=== PATIENT | male | born 1985 | race Caucasian/White ===

== ENCOUNTER 2024-11-08 09:47 | Emergency (ER) | payer BC, OTHER ==
[2024-11-08] MEDS ORDERED: Sodium Chloride 0.9% 10 ML Syringe FLUSH PRN (10:02)
[2024-11-08 10:25] LABS: BASOPHILS PERCENT AUTO 0.6 % (0.0-1.0); EOSINOPHILS PERCENT AUTO 0.4 % (0.0-6.0); HEMOGLOBIN 14.9 gm/dl (14.0-18.0); IMMATURE GRAN ABSOLUTE AUTO 0.01 K/mm3 (0.00-0.05); IMMATURE GRAN PERCENT AUTO 0.2 % (0.0-0.4); LYMPHOCYTES ABSOLUTE AUTO 0.5 K/mm3 (1.0-4.8); LYMPHOCYTES PERCENT AUTO 10.6 % (24.0-44.0); MEAN CORPUSCULAR HEMOGLOBIN 31.2 pg (28.0-32.0); MEAN CORPUSCULAR HGB CONC 33.1 g/dl (32.0-36.0); MEAN CORPUSCULAR VOLUME 94.1 fl (83.0-99.0); MEAN PLATELET VOLUME 9.7 fl (9.4-12.4); MONOCYTES ABSOLUTE AUTO 0.9 K/mm3 (0.0-0.8); MONOCYTES PERCENT AUTO 17.8 % (0.0-8.0); NEUTROPHILS ABSOLUTE AUTO 3.5 K/mm3 (1.8-7.7); NEUTROPHILS PERCENT AUTO 70.4 % (41.0-71.0); PLATELET COUNT,PLT 266 K/mm3 (150-400); RED BLOOD CELL COUNT 4.78 M/mm3 (4.52-5.90); WHITE BLOOD CELL COUNT,WBC 4.99 K/mm3 (3.9-11.3)
[2024-11-08] MEDS: Morphine 4 MG/ML Syringe IVPUSH PRN (10:36)
[2024-11-08 10:56] LABS: ALANINE AMINOTRANSFERASE,ALT 206 U/L (16-63); ALBUMIN 3.8 g/dl (3.4-5.0); ALKALINE PHOSPHATASE 73 U/L (46-116); ASPARTATE AMNIOTRANSFERASE,AST 97 U/L (15-37); BILIRUBIN TOTAL 0.3 mg/dL (0.2-1.0); BLOOD UREA NITROGEN,BUN 14 mg/dL (7-18); BUN/CREATININE RATIO 12.7 (14-18); C-REACTIVE PROTEIN 1.63 mg/dL (<0.30); CALCIUM 8.9 mg/dL (8.5-10.1); CARBON DIOXIDE,CO2 22 mEq/L (21-32); CHLORIDE,CL 104 mEq/L (98-107); CREATININE 1.1 mg/dL (0.7-1.3); EST CRCL DRUG DOSING (CG) 91.05 mL/min; ESTIMATED GFR 88 mL/min (>60); GLUCOSE RANDOM 100 mg/dL (70-99); PROTEIN TOTAL,TP 7.5 g/dl (6.4-8.2); SODIUM,NA 137 mEq/L (136-145)
[2024-11-08 10:57] LABS: TROPONIN I HIGH SENSITIVITY < 4 pg/mL (<=76)
[2024-11-08] MEDS: Gabapentin 300 MG Cap PO ONE (12:20)
[2024-11-08 12:26] LABS: APPEARANCE,URINE CLEAR (Clear); BILIRUBIN,URINE NEGATIVE (Negative); COLOR,URINE YELLOW (Yellow); GLUCOSE,URINE NEGATIVE (Negative); KETONES,URINE NEGATIVE (Negative); LEUKOCYTE ESTERASE,URINE NEGATIVE (Negative); NITRITE,URINE NEGATIVE (Negative); OCCULT BLOOD,URINE 2+ (Negative); PH,URINE 5.5 (5.0-8.0); PROTEIN,URINE 2+ (Negative); UROBILINOGEN,URINE 0.2 (0.2-1.0)
[2024-11-08 12:57] LABS: EPITHELIAL CELLS,URINE 0-5 /hpf (0-5); RBC,URINE 0-5 /hpf (0-5); WBC,URINE 0-5 /hpf (0-5)
[2024-11-08 12:58] LABS: BACTERIA,URINE FEW /hpf (FEW); MUCUS,URINE MODERATE /hpf (FEW)
[2024-11-08] MEDS: Iopamidol 612 MG/ML 100 ML Bottle IVPUSH ONE (13:28)
[2024-11-08] MEDS: Sodium Chloride 0.9% 10 ML Syringe FLUSH PRN (13:28)
[2024-11-08] MEDS: Iopamidol 612 MG/ML 30 ML SDV IUTERINE ONE (13:28)
[2024-11-08] MEDS: Iopamidol 612 MG/ML 30 ML SDV IV ONE (13:41)
== END 2024-11-08 15:19 | disposition home or self-care (01) ==
LOC: JD.ED 09:47
DX: M54.16 Radiculopathy, lumbar region (principal); Z79.899 Other long term (current) drug therapy
CPT/HCPCS: 36415; 72132; 72132-26; 80053; 81001; 84484; 85025; 86140; 96374; 96376; 99284-25; A9270-GY; J2270; Q9967